=== PATIENT | female | born 1985 | race American Indian/Alaskan Native ===

== ENCOUNTER 2018-08-17 13:01 | Outpatient (CLI) | payer BC ==
[2018-08-17] MEDS ORDERED: LACTATED RINGERS 500 ML IV ONE (13:27)
[2018-08-17 13:53] LABS: Bilirubin,Urine NEG (Negative); Blood,Urine SM (Negative); Color,Urine Yellow (Yellow); Protein,Urine <15 mg/dL mg/dL (Negative); Urobilinogen,Urine < 2.0 mg/dL (<2.0)
[2018-08-19 12:13] VITALS: BP 96/55
== END 2018-08-17 15:04 | disposition home or self-care (01) ==
LOC: EDSEX 13:01 → TRG 13:01
PROVIDERS: ATTEND Obstetrics & Gynecology
DX: O47.03 False labor before 37 completed weeks of gestation, third trimester (principal); Z3A.36 36 weeks gestation of pregnancy
CPT/HCPCS: 81001